=== PATIENT | male | born 1975 | race Caucasian/White ===

== ENCOUNTER 2018-04-21 18:34 | Emergency (ER) | payer OTHER, SELFPAY ==
[2018-04-21 18:35] VITALS: BP 170/93; PULSE 108; RESP 28; TEMP 36.7; O2SAT 96; BMI 50.8
--- NOTE | 2018-04-21 18:51 | ED.VISSUMM ---
- ER Visit Summary Date of Service: 04/21/18 Chief Complaint: Low back pain radiating down his left leg History of Present Illness: The patient is a 42 M past medical history of nnn-qgzycsh-svypdldgh diabetes, hypertension depression and COPD. No prior surgeries. No back surgeries. Patient states the last 2 weeks he has had increasing back pain now rating down his left leg with tingling. No weakness. No incontinence. He is on no blood thinners. Patient and he states that he slept on bed with his left leg hanging over the bed. Since that time for the last 2 weeks has had increasing low back pain. Radiating down his left buttock and left hamstring. He states the pain is very severe. He denies any trauma whatsoever. No falls. No fever. Physical Examination: Middle-aged male. Standing up. Complaining of pain. Vital signs are stable. He is afebrile. HEENT exam unremarkable. Neck nontender no lymphadenopathy. Lungs clear to auscultation bilaterally. Heart regular rhythm rate about 110 no murmur. Chest wall nontender. Abdomen soft, obese but nontender normal bowel sounds no peritoneal signs. Remedies moves all 4. He has severe pain with straight leg raise of the left leg. It goes down his buttock down his leg and he screams in pain. He also has pain on palpation of his lower lumbar spine and his left SI joint. There is no signs of trauma. No ecchymosis or bruising. Dorsi and plantar flexion are intact. He has no cauda equina or saddle anesthesia. He is able to stand on either leg. His right leg is unremarkable and is a negative straight leg raise on the right. Test Results: bgt = 221 Emergency Department Course and Treatment: Patient treated with IV Dilaudid, Toradol and Zofran. Patient was given a second dose of Dilaudid. After his MRI and 2300 patient is doing well. Feels better. His pain is under control. On repeat exam his both his lower extremities are neurovascular intact. No cauda equina. No saddle anesthesia. Normal medial thigh sensation. Normal dorsi and plantar flexion. His worst pain is when he does a straight leg raise on the left at about 45 degrees. But he has good motor strength in both feet. Patient denied his went over his MRI results. He definitely wants to go home and wants to be treated as an outpatient. I offered patient transfer to [place] for evaluation by spine surgeon. I explained to him that if he gets worse pain that he cannot control or gets numbness or weakness in his left lower extremity needs to return immediately and then we would transfer him to 1 of the larger hospitals in [place] for neurosurgery or spine surgery evaluation. He understands this. Treatment Plan: Patient attempted to get up and get out of bed to be discharged and was having too much pain. I discussed with him transfer. I spoke to [facility] transfer line and also [address] Garzon. Patient will be admitted to general medical floor unable to get spine surgery consultation. Disposition: Transferred to [facility] Impression: Acute lumbar low back pain with radiculopathy Acute L5-S1 disc protrusion with displacement of the S1 nerve also left posterior lateral disc protrusion L4 and L5. History of diabetes, hypertension and COPD This note was generated with wiseri dictation software. It may contain incorrect words, spelling, and punctuation that were not noted in review of the chart prior to signing ED Disposition - Plan for ED Patient: Disposition: Home or Assisted Living Instructions: ED DDD Degenerative Disk Disease Prescriptions: Oxycodone HCl/Acetaminophen [Percocet 10-325 mg Tablet] 1 - 2 tab PO Q6H PRN PRN 7 Days #30 tab PRN Reason: Pain Prednisone [Deltasone] 40 mg PO DAILY #10 tab Referrals: Wolf Wang MD [NON-STAFF] - As soon as possible Woo West MD [NON-STAFF] - As soon as possible Additional Instructions: Follow-up with either Dr. West at the [facility] in [facility] or Dr. Orr. At [facility] on Tuesday.
--- NOTE | 2018-04-21 18:54 | ED.DCSUM_ITS ---
- ER Visit Summary Date of Service: 04/21/18 Chief Complaint: Low back pain radiating down his left leg History of Present Illness: The patient is a 42 M past medical history of zgf-sdlexol-vfgdejgqq diabetes, hypertension depression and COPD. No prior surgeries. No back surgeries. Patient states the last 2 weeks he has had increasing back pain now rating down his left leg with tingling. No weakness. No incontinence. He is on no blood thinners. Patient and he states that he slept on bed with his left leg hanging over the bed. Since that time for the last 2 weeks has had increasing low back pain. Radiating down his left buttock and left hamstring. He states the pain is very severe. He denies any trauma whatsoever. No falls. No fever. Physical Examination: Middle-aged male. Standing up. Complaining of pain. Vital signs are stable. He is afebrile. HEENT exam unremarkable. Neck nontender no lymphadenopathy. Lungs clear to auscultation bilaterally. Heart regular rhythm rate about 110 no murmur. Chest wall nontender. Abdomen soft, obese but nontender normal bowel sounds no peritoneal signs. Remedies moves all 4. He has severe pain with straight leg raise of the left leg. It goes down his buttock down his leg and he screams in pain. He also has pain on palpation of his lower lumbar spine and his left SI joint. There is no signs of trauma. No ecchymosis or bruising. Dorsi and plantar flexion are intact. He has no cauda equina or saddle anesthesia. He is able to stand on either leg. His right leg is unremarkable and is a negative straight leg raise on the right. Test Results: bgt = 221 Emergency Department Course and Treatment: Patient treated with IV Dilaudid, Toradol and Zofran. Patient was given a second dose of Dilaudid. After his MRI and 2300 patient is doing well. Feels better. His pain is under control. On repeat exam his both his lower extremities are neurovascular intact. No cauda equina. No saddle anesthesia. Normal medial thigh sensation. Normal dorsi and plantar flexion. His worst pain is when he does a straight leg raise on the left at about 45 degrees. But he has good motor strength in both feet. Patient denied his went over his MRI results. He definitely wants to go home and wants to be treated as an outpatient. I offered patient transfer to [place] for evaluation by spine surgeon. I explained to him that if he gets w orse pain that he cannot control or gets numbness or weakness in his left lower extremity needs to return immediately and then we would transfer him to 1 of the larger hospitals in [place] for neurosurgery or spine surgery evaluation. He understands this. Treatment Plan: Patient attempted to get up and get out of bed to be discharged and was having too much pain. I discussed with him transfer. I spoke to [facility] transfer line and also [address] Garzon. Patient will be admitted to general medical floor unable to get spine surgery consultation. Disposition: Transferred to [facility] Impression: Acute lumbar low back pain with radiculopathy Acute L5-S1 disc protrusion with displacement of the S1 nerve also left posterior lateral disc protrusion L4 and L5. History of diabetes, hypertension and COPD This note was generated with Oesia dictation software. It may contain incorrect words, spelling, and punctuation that were not noted in review of the chart prior to signing ED Disposition - Plan for ED Patient: Disposition: Home or Assisted Living Instructions: ED DDD Degenerative Disk Disease Prescriptions: Oxycodone HCl/Acetaminophen [Percocet 10-325 mg Tablet] 1 - 2 tab PO Q6H PRN PRN 7 Days #30 tab PRN Reason: Pain Prednisone [Deltasone] 40 mg PO DAILY #10 tab Referrals: Wolf Wang MD [NON-STAFF] - As soon as possible Woo West MD [NON-STAFF] - As soon as possible Additional Instructions: Follow-up with either Dr. West at the [facility] in [facility] or Dr. Orr. At [facility] on Tuesday.
[2018-04-21] MEDS: Ondansetron 4 MG/2 ML Vial IV (19:01)
[2018-04-21] MEDS: Ketorolac 30 MG/ML Syringe IV (19:01)
[2018-04-21] MEDS: HYDROmorphone 1 MG/ML Syringe IV ×2 (19:01→21:48)
--- NOTE | 2018-04-21 19:12 | MRI_ITS ---
STUDY: MRI LUMBAR SPINE WITHOUT CONTRAST REASON FOR EXAM: Male, 42 years old. Back pain with left lower leg radiculopathy TECHNIQUE: Standardized fat and water weighted pulse sequences were obtained in the sagittal and axial planes. COMPARISON: None FINDINGS: T12-L1: Normal endplates. Normal disc height, hydration and morphology. Normal bilateral facet joints. Normal central canal and bilateral lateral recesses. Normal bilateral intervertebral neural foramina. Normal lumbar lordosis. There is no substantial scoliosis. There is mild posterior bulging annulus T11-T12. L1-2: There are mild Schmorl's nodes at L1 and L2. There is borderline central canal narrowing. Normal disc height, hydration and morphology. Normal bilateral facet joints. Normal bilateral intervertebral neural foramina. L2-3: There is mild broad-based posterior bulging annulus. There is borderline central canal narrowing. There is ligamentous hypertrophy and mild facet spondylosis. There is mild bilateral foraminal narrowing. There are Schmorl's nodes at L3 and L2 vertebral bodies. L3-4: There is no disc protrusion. There is mild ligamentous hypertrophy and mild facet spondylosis. There is borderline central canal narrowing. There is no foraminal stenosis. L4-5: There are no foraminal stenosis. Mild ligamentous hypertrophy and mild facet spondylosis. There is a left posterior lateral disc protrusion. There is moderate left foraminal stenosis. There is mild central canal narrowing. L5-S1: There is a moderate to large left paracentral disc protrusion. There is compression and posterior displacement of the left S1 nerve root within the central canal. There is borderline left foraminal narrowing. There is no right foraminal stenosis. There is mild ligamentous hypertrophy and mild facet spondylosis. Normal visualized sacral ala. Normal visualized paraspinous soft tissue structures. MRI/Spine Lumbar (Routine) IMPRESSION: Moderate to large left paracentral disc protrusion at L5-S1 with compression and posterior displacement of the left S1 nerve root within the central canal. There is borderline left foraminal stenosis Left posterior lateral disc protrusion at L4-L5 with moderate left foraminal stenosis and mild central canal stenosis Electronically Signed: Rosas Araiza, at 20:50 EST Tel , Service support ,
[2018-04-21 21:39] VITALS: BP 133/89; PULSE 81; RESP 18; O2SAT 94
[2018-04-21 22:11] LABS: Bedside Glucose 221 mg/dL (70-110)
--- NOTE | 2018-04-21 23:10 | ED.DEP ---
ED Disposition - Plan for ED Patient: Disposition: Home or Assisted Living Instructions: ED DDD Degenerative Disk Disease Prescriptions: Oxycodone HCl/Acetaminophen [Percocet 10-325 mg Tablet] 1 - 2 tab PO Q6H PRN PRN 7 Days #30 tab PRN Reason: Pain Prednisone [Deltasone] 40 mg PO DAILY #10 tab Referrals: Woo West MD [NON-STAFF] - As soon as possible Wolf Wang MD [NON-STAFF] - As soon as possible Additional Instructions: Follow-up with either Dr. West at the [facility] in [facility] or Dr. Orr. At [facility] on Tuesday.
--- NOTE | 2018-04-21 23:14 | DCINST.ED_ITS ---
ED Disposition - Plan for ED Patient: Disposition: Home or Assisted Living Instructions: ED DDD Degenerative Disk Disease Prescriptions: Oxycodone HCl/Acetaminophen [Percocet 10-325 mg Tablet] 1 - 2 tab PO Q6H PRN PRN 7 Days #30 tab PRN Reason: Pain Prednisone [Deltasone] 40 mg PO DAILY #10 tab Referrals: Woo West MD [NON-STAFF] - As soon as possible Wolf Wang MD [NON-STAFF] - As soon as possible Additional Instructions: Follow-up with either Dr. West at the [facility] in [facility] or Dr. Orr. At [facility] on Tuesday.
[2018-04-21] MEDS: predniSONE 20 MG Tablet 60 MG PO (23:16)
[2018-04-22] MEDS: HYDROmorphone 1 MG/ML Syringe IV (00:09)
== END 2018-04-22 00:31 | disposition short-term general hospital (02) ==
PROVIDERS: Emergency Provider Emergency Medicine; Family Provider Student in an Organized Health Care Education/Training Program; PCP Student in an Organized Health Care Education/Training Program
DX: M51.17 Intervertebral disc disorders with radiculopathy, lumbosacral region (principal); M51.36 Other intervertebral disc degeneration, lumbar region; E11.9 Type 2 diabetes mellitus without complications; J44.9 Chronic obstructive pulmonary disease, unspecified; I10 Essential (primary) hypertension; F32.9 Major depressive disorder, single episode, unspecified; Z79.84 Long term (current) use of oral hypoglycemic drugs; Z79.899 Other long term (current) drug therapy
CPT/HCPCS: 72148; 82962; 96374; 96375; 96376; 99282; J7030; A4216; J2405

== ENCOUNTER 2018-08-10 13:53 | Emergency (ER) | payer OTHER, SELFPAY ==
[2018-08-10 13:57] VITALS: BP 142/103; PULSE 110; RESP 18; TEMP 35.7; O2SAT 96; BMI 52.2
--- NOTE | 2018-08-10 14:48 | ED.DCSUM_ITS ---
History of Present Illness Chief Complaint: Back Informant: Patient Onset: Month(s) Current Severity: Moderate Narrative: The patient has a long history of left-sided lumbar back pain rating to his left lower leg he has extensive prior evaluation including recent MRI that showed lumbar disc disease at 2 levels that MRI was done here at [facility] end of April please see that report was reviewed, he indicates he was transferred [facility] he had an evaluation by 2 neurosurgeons and was told because of his body size and BMI he was not an operative candidate he was told to follow-up with other physicians indicates 3 he has chronic pain that has been dealing with at home intermittent use of Oxy codon, indicates 3 days ago the pain exacerbated it is exact same pain he had before he has no numbness weakness paresthesias in the perineal area just pain shooting down his left leg that is had before no cauda equina no trauma no abdominal pain, he has not followed up with his other physicians who he believes were at [facility] Past Medical History - Allergies and Home Meds Allergies/Adverse Reactions: Allergies No Known Allergies Allergy (Verified 04/21/18 18:37) Primary Care Physician: Beka Williamson DO [Primary Care Provider] - Past Medical History: - Smoking Status: Former smoker Review of Systems ROS: - See above General: Denies: Chills, Fever, Sweats Eyes: Denies: Visual changes - bilaterally, Diplopia ENT: Denies: Rhinorrhea, Sore throat Cardiovascular: Denies: Chest pain, Palpitations Respiratory: Denies: Dyspnea, Cough, Dyspnea on exertion Gastrointestinal: Denies: Abdominal pain, Nausea, Vomiting, Diarrhea, Melena, Hematochezia Genitourinary: Denies: Dysuria, Hematuria, Frequency Musculoskeletal: Reports: Back pain, Extremity Pain, - - He has left paralumbar back pain that radiates to his left buttock and down his left leg he has near full range of motion to the left lower extremity right lower extremity but complains of pain with any type of range of movement of left lower extremity he is able dorsi and plantarflex bilaterally his pulses are symmetric the skin is normal he prefers to lay completely still Skin: Denies: Rash, Wounds Neurological: Denies: Headache, Weakness, Numbness Physical Exam Vital Signs/Narrative: Vital Signs Temp Pulse Resp BP Pulse Ox 08/10/18 13:57 96.3 F L 110 H 18 142/103 H 96 General: Well nourished, Well developed, No Acute Distress Head: Normocephalic, Atraumatic Eyes: Perrl, EOMI ENT: Moist mucous membranes, No rhinorrhea Neck: Supple, Nontender Cardiovascular: Regular rate, Regular rhythm, No murmurs Respiratory: No distress, CTA bilaterally, Chest nontender Abdomen: Soft, Nontender, Nondistended, Normal bowel sounds Back: Nontender, Normal Inspection Extremities: Nontender, No edema Skin: Normal color, No rash Neurological: Alert, Oriented x3, Cranial nerves II-XII grossly intact, Normal Strength, Normal Sensation, - - See the note in the review of systems related to this part of the exam Psychological: Normal affect, Normal Mood Diagnostic/Tx/Re-eval - Medical Decision Making Now the MRI did show two-level disease L4 L5-l5 S1, see that report he indicates he is actually been having the pain intermittently since all of the above and it recurred 3 days ago for no specific reason there is no signs of cauda equina he simply wants to be treated for the pain and he wants to go home to follow-up with his outpatient providers, he is given morphine 10 mg Toradol Zofran Evaluation he is feeling much better he has full range of motion of the left lower extremity we discussed inpatient versus outpatient management the concept of the disc cauda equina, he does not wish to be admitted he wants to go home, he understands to follow-up with the back surgeon she was referred to have also recommended he follow-up with [facility] orthopedic spine surgery for further management of the above and return for any signs of numbness weakness incontinence or signs of cauda equina he will do so Home stable Final impression Acute recurrent lumbar back pain history of lumbar disc disease ED Disposition - Plan for ED Patient: Diagnosis: Sciatic leg pain Instructions: BACK SPASM, No Trauma Referrals: Beka Williamson DO [Primary Care Provider] - Additional Instructions: Follow-up with your back surgeon as instructed, consider following up with [facility] lumbar back surgery team
[2018-08-10] MEDS: Ketorolac 60 MG/2 ML Vial IM (14:52)
[2018-08-10] MEDS: Ondansetron ODT 4 MG Tablet PO (14:52)
[2018-08-10] MEDS: morphine 10 MG/ML Syringe SC (14:52)
== END 2018-08-10 15:57 | disposition home or self-care (01) ==
LOC: ED 15:52
PROVIDERS: Emergency Provider Emergency Medicine; Family Provider Student in an Organized Health Care Education/Training Program; PCP Student in an Organized Health Care Education/Training Program
DX: M54.42 Lumbago with sciatica, left side (principal); M51.9 Unspecified thoracic, thoracolumbar and lumbosacral intervertebral disc disorder; Z87.891 Personal history of nicotine dependence
CPT/HCPCS: 96372; 99283

== ENCOUNTER 2020-05-31 08:18 | Observation (INO) | payer OTHER, SELFPAY ==
[2020-05-31] VITALS (12 sets, daily range): BP systolic 118–161; BP diastolic 65–97; PULSE 81–102; RESP 16–24; TEMP 36.4–36.6; O2SAT 93–96; BMI 50.8; BMI 51.4; BMI 51.3
--- NOTE | 2020-05-31 08:28 | CT_ITS ---
STUDY: CT BRAIN WITHOUT CONTRAST REASON FOR EXAM: Male, 44 years old. Headache after trauma RADIATION DOSAGE (If Supplied By Facility): CTDIvol = ( 44.99 ) mGy, DLP = ( 866.41 ) mGycm TECHNIQUE: Transaxial CT imaging of the brain was performed without administration of intravenous contrast material. Individualized dose optimization techniques were used for this CT. COMPARISON: No relevant priors. FINDINGS: Normal soft tissue structures. Normal calvarium. Normal size ventricles and extra-axial spaces for the patient''s age. Normal white matter tracts of the cerebral hemispheres. Normal basal ganglia and thalami. Normal brainstem. Normal cerebellum. There is no intracranial hemorrhage. There are no findings of an acute ischemic infarction. Normal visualized paranasal sinuses. CT/Brain/Head without Contrast IMPRESSION: No acute intracranial abnormalities Electronically Signed: Ángel Garcia MD at 9:19 EDT , Service support ,
--- NOTE | 2020-05-31 08:28 | ED.DCSUM_ITS ---
History of Present Illness Chief Complaint: Chest Pain Informant: Patient Narrative: 44-year-old male presenting with left shoulder pain. He states that it starts in the left upper chest and radiates to his left side of his neck and left clavicle as well as left shoulder. This is been ongoing for about 4 days. 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 Patient states he soaked through his clothes. This is the only time he has had this diaphoresis and near syncopal episode since his pain started. He states that his chest pain appears to be improving at this time. He does feel like he is fatigued and weak. He denies any cardiac history but states that he was unable to do a stress test because he was too obese. He could not perform a chemical stress test due to anxiety. He states this was a couple years ago. Patient's risk factor diabetes, hypothyroidism, hypertension, obesity. Patient does not have DVT/PE history. Past Medical History - Allergies and Home Meds Allergies/Adverse Reactions: Allergies No Known Allergies Allergy (Verified 05/31/20 08:22) Primary Care Physician: Beka Williamson DO [Primary Care Provider] - Past Medical History: - - Diabetes, hypertension, hypothyroidism Smoking Status: Never smoker Review of Systems General: Denies: Chills, Fever, Sweats Eyes: Denies: Visual changes - bilaterally, Diplopia ENT: Denies: Rhinorrhea, Sore throat Cardiovascular: Reports: Chest pain Respiratory: Denies: Dyspnea, Cough, Dyspnea on exertion Gastrointestinal: Reports: Nausea. Denies: Abdominal pain Genitourinary: Denies: Dysuria, Hematuria, Frequency Musculoskeletal: Denies: Back pain, Extremity Pain Skin: Denies: Rash, Abscess Neurological: Reports: Headache Psych: Denies: Depression, Anxiety Endocrine: Reports: Polyuria, Polydipsia Hematologic: Denies: Easy bruising, Easy bleeding Physical Exam Vital Signs/Narrative: Vital Signs Temp Pulse Resp BP Pulse Ox 05/31/20 08:22 97.5 F L 102 H 20 H 161/92 H 96 Inital Vital Signs reviewed: Yes General: Obese, No Acute Distress Head: Normocephalic, Atraumatic Eyes: Perrl, EOMI ENT: Moist mucous membranes, No rhinorrhea Cardiovascular: Regular rate, Regular rhythm Respiratory: No distress, CTA bilaterally Abdomen: Soft, Nontender, Nondistended Extremities: Nontender, No edema Skin: Normal color, No rash. Negative for: Cyanosis, Diaphoresis, Jaundice Neurological: Alert, Oriented x3, Cranial nerves II-XII grossly intact Psychological: Normal affect, Normal Mood Diagnostic/Tx/Re-eval - Medical Decision Making 44-year-old male presenting with chest pain and near syncopal episode. He states his pain has been present for about 3 or 4 days. This worsened overnight he became diaphoretic prior to becoming near syncopal. EKG performed on arrival shows sinus tachycardia at 102 bpm without signs of ischemic changes as interpreted by myself. CBC is unremarkable. Renal function is a creatinine of 1.75 and is previously at 1.07 which is new however this is compared to lab work in 2017. Troponin is negative. D-dimer is negative. Glucose is 373 on lab work however he has no anion gap. Ketones are negative. Chest x-ray is interpreted by myself shows no acute cardiopulmonary process. Patient's heart score is a 5. Is recommended that he stays in the hospital for cardiac gato luation. Patient is willing to do so at this time. I did speak with the hospitalist who accepted patient for observation. Impression: 1. Hyperglycemia 2. Acute kidney injury 3. Chest pain ED Disposition - Plan for ED Patient: Disposition: Acute Care Hospital [facility] Referrals: Beka Williamson DO [Primary Care Provider] -
--- NOTE | 2020-05-31 08:28 | EKG12_ITS ---
Test Reason : CP Blood Pressure : / mmHG Vent. Rate : 102 BPM Atrial Rate : 102 BPM P-R Int : 152 ms QRS Dur : 096 ms QT Int : 366 ms P-R-T Axes : 046 059 043 degrees QTc Int : 477 ms Sinus tachycardia Low voltage QRS Borderline ECG Confirmed by MARIAH BLOCK, VICKY ([id number]), editor department TANI CUBA ([id number]) on 06/04/2020 10:50:31 AM Referred By: ZANDRA Confirmed By:VICKY LEMUS MD
--- NOTE | 2020-05-31 08:28 | RAD_ITS ---
STUDY: X-RAY CHEST REASON FOR EXAM: Male, 44 years old. Chest pain TECHNIQUE: Single AP portable view of the chest. COMPARISON: None. FINDINGS: EKG leads overlie the chest The lungs are clear and expanded. There is no demonstrated pleural abnormality. Normal size heart. Normal mediastinum and deyvi. Normal visualized pulmonary arteries. Normal visualized aortic arch and descending thoracic aorta. Normal visualized thoracic spine. Normal visualized ribs, clavicles, and shoulders. There is no demonstrated abnormality of the visualized soft tissue structures of the upper abdomen. RAD/Chest 1 View (Portable) IMPRESSION: Normal x-ray examination of the chest. Electronically Signed: Ángel Garcia MD at 9:19 EDT , Service support ,
[2020-05-31 08:36] LABS: Bedside Glucose 447 mg/dL (70-110)
[2020-05-31] MEDS: 0.9% Normal Saline 1,000 ML 999 ML IV (08:40)
[2020-05-31] MEDS: Aspirin 81 MG TAB.CHEW 324 MG PO (08:40)
[2020-05-31 08:49] LABS: Absolute Lymphocyte Count 2.05 X10^3/uL (0.83-4.51); Absolute Neutrophil Count 4.4 X10^3/uL (2.0-7.7); Basophil# 0.07 X10^3/uL; Basophil% 0.9 % (0-1); Eosinophil# 0.31 X10^3/uL; Eosinophils% 4.2 % (0-5); Hematocrit 43.4 % (40-54); Hemoglobin 14.5 g/dL (13.0-16.5); Lymphocyte # 2.05 X10^3/ul (4.0); Lymphocyte % 27.7 % (19-41); Mean Corp Hgb Conc 33.4 g/dL (32-36); Mean Corpuscular Hgb 28.9 pg (27.0-32.0); Mean Corpuscular Volume 86.6 fL (80-94); Mean Platelet Vol. 9.6 fl (6.2-12.0); Monocyte# 0.51 X10^3/uL; Monocyte% 6.9 % (0-10); NRBC Flagged by Analyzer 0 % (0-5); Neutrophil # 4.41 X10^3/uL (2.7-7.7); Neutrophil % 59.5 % (47-70); Platelet Count 237 K/mm3 (150-450); RBC Distribution Width SD 40.6 fl (35.1-43.9); Red Blood Count 5.01 M/mm3 (4.6-6.2); White Blood Count 7.4 K/mm3 (4.4-11.0)
[2020-05-31 09:38] LABS: D-Dimer Quantitative (DVT/PE) 0.28 FEU/ug/m (0.27-0.49)
[2020-05-31 09:41] LABS: Anion Gap 6 (5-15); BUN 33 mg/dL (7-18); BUN/Creat Ratio 18.9 RATIO (10-20); Calcium,Total 8.9 mg/dL (8.5-10.1); Chloride 101 mmol/L (98-107); Creatinine, Serum 1.75 mg/dL (0.70-1.30); EST Glomerular Filtration Rate 45 mL/min (>60); Est Glom Filt Rate - Afr Amer 54 mL/min (>60); Estimated Creatinine Clearance 58.51 ml/min; Glucose 373 mg/dL (74-106); Sodium Level 133 mmol/L (136-145)
[2020-05-31 10:16] LABS: Bacteria 0 SEEN /hpf (None Seen); Mucous, Urine 0 SEEN /hpf (<or=2+); Red Blood Cells-Urine 0 SEEN /hpf (0-5); Squamous Epithelial Cells - UA 0 SEEN /hpf (0-5); White Blood Cells 0 SEEN /hpf (0-5)
[2020-05-31 10:31] LABS: Color, Urine Yellow (Yellow); Glucose, Dipstick 1000 mg/dl (Normal); Ketone-Dipstick Negative (Negative); Leukocyte Esterase-Dipstick Negative /ul (Negative); Nitrite-Dipstick Negative (Negative); Occult Blood-Urine Negative /ul (Negative); Protein-Dipstick 30 mg/dl (Negative); Specific Gravity, Urine 1.015 (1.002-1.030); Urine Bilirubin Dipstick Negative (Negative); Urine Clarity Clear (Clear); Urine Urobilinogen Normal (Normal)
--- NOTE | 2020-05-31 12:20 | HP.PCM_ITS ---
Problem List (1) HTN (hypertension) Status: Chronic (2) Hypothyroidism Status: Chronic (3) Type 2 diabetes mellitus Status: Chronic (4) ERI on CPAP Status: Chronic (5) Obesity Status: Chronic (6) COPD (chronic obstructive pulmonary disease) Status: Chronic History of Present Illness Date of Admission: 05/31/20 Chief Complaint: Chest pain. The patient is a 44 year old M who presents to the emergency room due to chest pain. Patient states over the past 4 to 5 days he has had left arm pain and left clavicle area pain which has been burning in nature and is continuous. Denies worsening symptoms with exertion or any aggravating or alleviating facto rs. He states he is chronically short of breath due to being out of shape. Last night at work around 3 AM, patient states he developed sudden severe diaphoresis and weakness along with shortness of breath. He states he felt like he was going to pass out at this time. He states he was dripping sweat. He has not experienced this in the past. He denies known CAD. He states his uncles on his dad's side all have a cardiac history. He has a past medical history of type 2 diabetes mellitus, hypertension, hypothyroidism, anxiety, depression, ERI on CPAP, chronic back pain, COPD, obesity, former tobacco use, former alcohol use. Past Medical History Past Medical History (Chronic Problems): Chronic Problems HTN (hypertension) (Chronic) Hypothyroidism (Chronic) Type 2 diabetes mellitus (Chronic) ERI on CPAP (Chronic) Obesity (Chronic) COPD (chronic obstructive pulmonary disease) (Chronic) Allergies No Known Allergies Allergy (Verified 05/31/20 08:22) Home Medications: Ambulatory Orders Medication Instructions Recorded Albuterol Inhaler [Ventolin Hfa 1 - 2 puff INHALATION Q4H PRN PRN 04/21/18 (SP)] Fluticasone/Salmeterol [Advair 2 puff INHALATION BID 04/21/18 250-50 Diskus] Levothyroxine Sodium 100 mcg PO DAILY 04/21/18 Lisinopril/Hydrochlorothiazide 1 each PO DAILY 04/21/18 [Lisinopril-Hctz 20-12.5 mg Tab] Metformin HCl 1,000 mg PO BID 04/21/18 Sertraline HCl 1 tab PO DAILY 04/21/18 buPROPion XL [Wellbutrin Xl] 300 mg PO DAILY 04/21/18 Diclofenac [Voltaren] 75 mg PO TID 08/10/18 Gabapentin [Neurontin] 600 mg PO TID 08/10/18 Insulin Glargine,Hum.rec.anlog 34 unit SQ DAILY 08/10/18 [Lantus] Tizanidine HCl 4 mg PO Q6H 05/31/20 Surgical History: no surgical history Psychiatric History: Anxiety, Depression Lives: Spouse/ Significant Other, With Family Smoking Status: Former smoker Alcohol: Sober Drugs: None - *Family History Maternal History Items: - - Osteoporosis, history of bone fractures. Denies maternal cardiac history. Paternal History Items: - - Cancer, esophageal. Denies paternal cardiac history. Review of Systems Constitutional: Denies: Chills, Fever, Weight Change HEENT: Denies: Head Aches, Sinus Congestion, Sinus Drainage Cardiovascular: Reports: Chest Pain, Light Headedness, - - Diaphoresis. Denies: Palpitations Respiratory: Reports: Shortness of breath upon exertion. Denies: Cough, Sputum production, Wheezing Gastrointestinal: Denies: Abdominal Pain, Nausea, Vomiting Genitourinary: Denies: Dysuria Musculoskeletal: Reports: Back Pain - Chronic. Denies: Joint Pain, Joint Tenderness Skin: Denies: Rash, Wounds Neurological: Denies: Numbness, Tingling, Focal weakness Psychiatric: Reports: Anxiety, Depression Hematologic/ Lymphatic: Denies: Easy Bruising, Easy Bleeding VTE Information - Inpt Only VTE Present on Admission: No VTE Mechan Device Prophylaxis: SCD's VTE Pharm Prophylaxis ordered?: No Reason prophylaxis not ordered:: Treatment Not Indicated - Physical Exam Vitals/I&O's: Vital Signs Temp Pulse Resp BP Pulse Ox 97.9 F 94 17 135/90 H 94 05/31/20 11:38 05/31/20 11:38 05/31/20 11:38 05/31/20 11:38 05/31/20 11:38 Oxygen Delivery Method Room Air Weight: 375 lb Body Mass Index (BMI) 50.8 Finger Stick Blood Glucose 447 Intake and Output for Last 24 Hours 05/29/20 05/30/20 05/31/20 23:59 23:59 23:59 Intake Total 1000 / 1000 Balance 1000 / 1000 General: Alert, Oriented x3, Cooperative HEENT: Atraumatic, PERRLA, EOMI, Normocephalic Neck: Supple, No JVD, Negative Carotid Bruits Lungs: Clear to auscultation, Normal air movement Cardiovascular: Regular rate, No murmurs Abdomen: Bowel Sounds Present, Soft, Non Tender, Non-Distended, Obese Extremities: No clubbing, No cyanosis, No edema, Capillary Refill Less than 3 Seconds Skin: No rashes, No breakdown Musculoskeletal: No Tenderness to Palpation of Joints or Extremities Neurological: Cranial nerves II-XII grossly intact, Neuro grossly intact Psych/Mental Status: Normal Affect, Appropriate Laboratory Results 05/31/20 08:30: POC Glucose 447 H 05/31/20 08:38: WBC 7.4, RBC 5.01, Hgb 14.5, Hct 43.4, MCV 86.6, MCH 28.9, MCHC 33.4, RDW Std Deviation 40.6, RDW Coeff of [place] 13.0, Plt Count 237, MPV 9.6, Immature Gran % (Auto) 0.800, Neut % (Auto) 59.5, Lymph % (Auto) 27.7, [place] % (Auto) 6.9, Eos % (Auto) 4.2, Baso % (Auto) 0.9, Absolute Neuts (auto) 4.4, Absolute Lymphs (auto) 2.05, Nucleated RBC % 0 05/31/20 08:38: D-Dimer Quant (PE/DVT) Cancelled 05/31/20 08:38: Sodium Cancelled, Potassium Cancelled, Chloride Cancelled, Carbon Dioxide Cancelled, Anion Gap Cancelled, BUN Cancelled, Creatinine Cancelled, Estim Creat Clear Calc Cancelled, Est GFR (MDRD) Af Amer Cancelled, Est GFR (MDRD) Non-Af Cancelled, BUN/Creatinine Ratio Cancelled, Glucose Cancelled, Calcium Cancelled, Magnesium Cancelled, Troponin I Cancelled, TSH Cancelled 05/31/20 08:38: Acetone Level Cancelled 05/31/20 09:16: D-Dimer Quant (PE/DVT) 0.28 05/31/20 09:16: Sodium 133 L, Potassium 5.0, Chloride 101, Carbon Dioxide 26.0, Anion Gap 6, BUN 33 H, Creatinine 1.75 H, Estim Creat Clear Calc 58.51, Est GFR (MDRD) Af Amer 54 L, Est GFR (MDRD) Non-Af 45 L, BUN/Creatinine Ratio 18.9, Glucose 373 H, Calcium 8.9, Magnesium 2.0, Troponin I < 0.015 05/31/20 09:16: Acetone Level NEGATIVE 05/31/20 10:12: Urine Color Yellow, Urine Clarity Clear, Urine pH 5.0, Ur Specific [place] 1.015, Urine Protein 30 H, Urine Glucose (UA) 1000 H, Urine Ketones Negative, Urine Occult Blood Negative, Urine Nitrite Negative, Urine Bilirubin Negative, Urine Urobilinogen Normal, Ur Leukocyte Esterase Negative, Urine RBC 0 SEEN, Urine WBC 0 SEEN, Ur Squamous Epith Cells 0 SEEN, Urine Bacteria 0 SEEN, Urine Mucus 0 SEEN Assessment/Plan 1. Chest pain- troponin negative. EKG without acute changes. Plan for stress test on Tuesday. Aspirin 81 mg daily. Lipid profile in a.m. 2. Acute kidney injury-IV fluids, trend BMP. 3. Type 2 diabetes mellitus-poorly controlled. Glucose 373 on admission. Check hemoglobin A1c. Accu-Cheks with sliding scale insulin. Continue home Lantus regimen. 4. Hypertension-appears stable, continue lisinopril/HCTZ regimen. 5. Hypothyroidism-continue Synthroid regimen. 6. Anxiety/depression-on bupropion, sertraline. 7. ERI-on CPAP. 8. Chronic back pain-on Voltaren, gabapentin, tizanidine. 9. Chronic COPD-as needed albuterol aerosol. 10. Obesity-encouraged diet lifestyle modifications. 11. Former tobacco use- Encouraged continued cessation. 12. 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 DVT prophylaxis-SCDs This patient was seen by ANI Goss under the supervision of Dr. Farrar.
--- NOTE | 2020-05-31 12:32 | EKG12_ITS ---
Test Reason : AM EKG Blood Pressure : / mmHG Vent. Rate : 088 BPM Atrial Rate : 088 BPM P-R Int : 152 ms QRS Dur : 104 ms QT Int : 394 ms P-R-T Axes : 055 078 065 degrees QTc Int : 476 ms Normal sinus rhythm Normal ECG When compared with ECG of 31-MAY-2020 13:05, MANUAL COMPARISON REQUIRED, DATA IS UNCONFIRMED Confirmed by MARIAH BLOCK, VICKY ([id number]), book editor TANI CUBA ([id number]) on 06/04/2020 1:13:25 PM Referred By: DR TORRES Confirmed By:VICKY LEMUS MD
[2020-05-31] MEDS: metFORMIN HCl 500 MG Tablet 1000 MG PO (13:19)
[2020-05-31] MEDS: Lisinopril 20 MG Tablet PO (13:19)
[2020-05-31] MEDS: Acetaminophen 325 MG Tablet 650 MG PO (13:19)
[2020-05-31] MEDS: Gabapentin 300 MG Capsule 600 MG PO ×2 (13:20→17:04)
[2020-05-31] MEDS: 0.9% Normal Saline 1,000 ML 150 ML IV ×2 (13:20→18:42)
[2020-05-31] MEDS: 0.9% Saline Lock 10 ML Syringe IV (13:20)
[2020-05-31 13:58] LABS: Hemoglobin A1c 11.4 % (3.8-5.6)
[2020-05-31] MEDS: tiZANidine HCl 2 MG Tablet 4 MG PO (15:01)
[2020-05-31] MEDS: busPIRone 15 MG TABLET 7.5 MG PO (15:01)
[2020-05-31] MEDS: Sertraline 50 MG Tablet PO (15:01)
[2020-05-31] MEDS: buPROPion (XL) 300 MG TABLET.XL PO (15:01)
[2020-05-31] MEDS: Insulin Lispro 100 UNIT/ML INSULN.PEN SC ×2 (17:02→22:31)
[2020-05-31 17:05] LABS: Bedside Glucose 296 mg/dL (70-110)
[2020-05-31] MEDS: Budesonide Respules 0.5 MG/2 ML AMPUL.NEB. INHALATION (19:05)
[2020-05-31] MEDS: Albuterol 2.5 MG/3 ML VIAL.NEB. INHALATION (19:05)
[2020-05-31 23:56] LABS: Bedside Glucose 204 mg/dL (70-110)
[2020-06-01] VITALS (12 sets, daily range): BP systolic 117–120; BP diastolic 69–72; PULSE 88–108; RESP 18–21; TEMP 36.4–36.6; O2SAT 94–97
[2020-06-01] MEDS: 0.9% Normal Saline 1,000 ML 150 ML IV ×4 (01:30→20:47)
[2020-06-01] MEDS: Levothyroxine 100 MCG Tablet PO (06:42)
[2020-06-01] MEDS: Insulin Lispro 100 UNIT/ML INSULN.PEN SC ×4 (06:44→20:47)
[2020-06-01 06:55] LABS: Bedside Glucose 277 mg/dL (70-110)
[2020-06-01 07:07] LABS: Anion Gap 4 (5-15); BUN 22 mg/dL (7-18); BUN/Creat Ratio 17.5 RATIO (10-20); Calcium,Total 8.6 mg/dL (8.5-10.1); Chloride 102 mmol/L (98-107); Cholesterol 226 mg/dL (200); Creatinine, Serum 1.26 mg/dL (0.70-1.30); EST Glomerular Filtration Rate 66 mL/min (>60); Est Glom Filt Rate - Afr Amer 79 mL/min (>60); Estimated Creatinine Clearance 78.85 ml/min; Glucose 276 mg/dL (74-106); High Density Lipoprotein 38 mg/dL; Potassium 4.8 mmol/L (3.5-5.1); Sodium Level 133 mmol/L (136-145); Triglycerides 462 mg/dL
[2020-06-01] MEDS: Acetaminophen 325 MG Tablet 650 MG PO ×2 (09:11→20:46)
[2020-06-01] MEDS: busPIRone 15 MG TABLET 7.5 MG PO (09:11)
[2020-06-01] MEDS: tiZANidine HCl 2 MG Tablet 4 MG PO ×2 (09:11→20:46)
[2020-06-01] MEDS: Gabapentin 300 MG Capsule 600 MG PO ×3 (09:12→16:45)
[2020-06-01] MEDS: buPROPion (XL) 300 MG TABLET.XL PO (09:12)
[2020-06-01] MEDS: Sertraline 50 MG Tablet PO (09:12)
[2020-06-01] MEDS: Lisinopril 20 MG Tablet PO (09:12)
--- NOTE | 2020-06-01 10:38 | PN_ITS ---
Subjective: Patient seen and examined. No acute events overnight. Denies further chest pain or episodes of diaphoresis, shortness of breath. - Physical Exam Vitals/I&O's: Vital Signs Temp Pulse Resp BP Pulse Ox 97.6 F L 94 18 118/69 96 06/01/20 09:02 06/01/20 09:02 06/01/20 09:02 06/01/20 09:02 06/01/20 09:02 Oxygen Delivery Method Room Air Weight: 368 lb 6.279 oz Body Mass Index (BMI) 51.3 Finger Stick Blood Glucose 447 Intake and Output for Last 24 Hours 05/30/20 05/31/20 06/01/20 23:59 23:59 23:59 Intake Total 2605 / 2605 2200 / 2200 Balance 2605 / 2605 2200 / 2200 General: Alert, Oriented x3, Cooperative HEENT: Atraumatic, PERRLA, EOMI, Normocephalic Neck: Supple, No JVD, Negative Carotid Bruits Lungs: Clear to auscultation, Normal air movement Cardiovascular: Regular rate, No murmurs Abdomen: Bowel Sounds Present, Soft, Non Tender, Non-Distended, Obese Extremities: No clubbing, No cyanosis, No edema, Capillary Refill Less than 3 Seconds Skin: No rashes, No breakdown Musculoskeletal: No Tenderness to Palpation of Joints or Extremities Neurological: Cranial nerves II-XII grossly intact, Neuro grossly intact Psych/Mental Status: Normal Affect, Appropriate Laboratory Results 05/31/20 10:12: Urine RBC 0 SEEN, Urine WBC 0 SEEN, Ur Squamous Epith Cells 0 SEEN, Urine Bacteria 0 SEEN, Urine Mucus 0 SEEN 05/31/20 12:40: Troponin I < 0.015 05/31/20 12:40: Hemoglobin A1c 11.4 H 05/31/20 15:44: Troponin I < 0.015 05/31/20 16:58: POC Glucose 296 H 05/31/20 22:30: POC Glucose 204 H 06/01/20 06:23: Sodium 133 L, Potassium 4.8, Chloride 102, Carbon Dioxide 27.0, Anion Gap 4 L, BUN 22 H, Creatinine 1.26, Estim Creat Clear Calc 78.85, Est GFR (MDRD) Af Amer 79, Est GFR (MDRD) Non-Af 66, BUN/Creatinine Ratio 17.5, Glucose 276 H, Calcium 8.6, Triglycerides 462 H, Cholesterol 226 H, LDL Cholesterol TNP, VLDL Cholesterol TNP, HDL Cholesterol 38 L 06/01/20 06:44: POC Glucose 277 H Current Medications Acetaminophen (Acetaminophen 325 Mg Tablet) 650 mg PO Q6H PRN PRN PRN Reason: Pain Score 1-10/Temp > 100.7 F Last Admin: 06/01/20 09:11 Dose: 650 mg Documented by: Albuterol Sulfate (Albuterol 2.5 Mg/3 Ml Vial.Neb.) 2.5 mg INHALATION Q6HWA.RT [facility] Last Admin: 05/31/20 19:05 Dose: 2.5 mg Documented by: Budesonide (Budesonide Respules 0.5 Mg/2 Ml Ampul.Neb.) 0.5 mg INHALATION Q12H .RT [facility] Last Admin: 05/31/20 19:05 Dose: 0.5 mg Documented by: Bupropion HCl (Bupropion (Xl) 300 Mg Tablet.Xl) 300 mg PO DAILY [facility] Last Admin: 06/01/20 09:12 Dose: 300 mg Documented by: Buspirone HCl (Buspirone 15 Mg Tablet) 7.5 mg PO TID PRN PRN Reason: ANXIETY Last Admin: 06/01/20 09:11 Dose: 7.5 mg Documented by: Gabapentin (Gabapentin 300 Mg Capsule) 600 mg PO TIDCM [facility] Last Admin: 06/01/20 09:12 Dose: 600 mg Documented by: Sodium Chloride () 1,000 mls @ 150 mls/hr IV .Q6H40M [facility] Last Admin: 06/01/20 08:38 Dose: 150 mls/hr Documented by: Sodium Chloride () 500 mls @ 15 mls/hr IV PRN PRN PRN Reason: Blood Transfusion Sodium Chloride () 250 mls @ 15 mls/hr IV .[id number] PRN PRN Reason: Saline Flush Sodium Chloride () 250 mls @ 15 mls/hr IV .[id number] PRN PRN Reason: Additional IVPB Infusion Insulin Glargine (Insulin Glargine 100 Units/Ml Pen) 42 units SC DAILY [facility] Last Admin: 06/01/20 09:10 Dose: 42 unit Documented by: Insulin Human Lispro (Insulin Lispro 100 Unit/Ml Insuln.Pen) 0 unit SC ACHS [facility]; Protocol Last Admin: 06/01/20 06:44 Dose: 4 unit Documented by: Levothyroxine Sodium (Levothyroxine 100 Mcg Tablet) 100 mcg PO DAILY@0600 [facility] Last Admin: 06/01/20 06:42 Dose: 100 mcg Documented by: Lisinopril (Lisinopril 20 Mg Tablet) 20 mg PO DAILY [facility] Last Admin: 06/01/20 09:12 Dose: 20 mg Documented by: Metformin HCl (Metformin Hcl 500 Mg Tablet) 1,000 mg PO BIDCM [facility] Last Admin: 06/01/20 09:03 Dose: Not Given Documented by: Ondansetron HCl (Ondansetron 4 Mg/2 Ml Vial) 4 mg IV Q8H PRN PRN PRN Reason: NAUSEA/VOMITING Sertraline HCl (Sertraline 50 Mg Tablet) 50 mg PO DAILY [facility] Last Admin: 06/01/20 09:12 Dose: 50 mg Documented by: Sodium Chloride (0.9% Saline Lock 10 Ml Syringe) 10 - 40 ml IV UD PRN PRN Reason: SALINE FLUSH Last Admin: 05/31/20 13:20 Dose: 10 ml Documented by: Tizanidine HCl (Tizanidine Hcl 2 Mg Tablet) 4 mg PO Q8H PRN PRN PRN Reason: MUSCLE SPASM Last Admin: 06/01/20 09:11 Dose: 4 mg Documented by: Medical Necessity - Tobacco Use Smoking Status: Former smoker Assessment/Plan 1. Chest pain- troponin negative. EKG without acute changes. Plan for stress test on Tuesday. Aspirin 81 mg daily. Initiated on statin. 2. Acute kidney injury-improved with IV fluids, trend BMP. 3. Type 2 diabetes mellitus-poorly controlled. Hemoglobin A1c 11.4%. Accu- Cheks with sliding scale insulin. Home Lantus regimen increased. 4. Hypertension-appears stable, continue lisinopril/HCTZ regimen. 5. Hypothyroidism-continue Synthroid regimen. 6. Anxiety/depression-on bupropion, sertraline. 7. ERI-on CPAP. 8. Chronic back pain-on Voltaren, gabapentin, tizanidine. 9. Chronic COPD-as needed albuterol aerosol. 10. Obesity-encouraged diet lifestyle modifications. 11. Former tobacco use- Encouraged continued cessation. 12. 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 13. Hyperlipidemia-initiated on statin. DVT prophylaxis-SCDs This patient was seen by ANI Goss under the supervision of Dr. Farrar.
[2020-06-01] MEDS: Albuterol 2.5 MG/3 ML VIAL.NEB. INHALATION ×2 (11:30→20:03)
[2020-06-01] MEDS: Budesonide Respules 0.5 MG/2 ML AMPUL.NEB. INHALATION ×2 (11:30→20:03)
[2020-06-01 11:40] LABS: Bedside Glucose 295 mg/dL (70-110)
[2020-06-01 16:51] LABS: Bedside Glucose 289 mg/dL (70-110)
[2020-06-01] MEDS: Atorvastatin Calcium 20 MG Tablet PO (20:47)
[2020-06-01 21:36] LABS: Bedside Glucose 268 mg/dL (70-110)
[2020-06-02 03:00] VITALS: BP 118/66; PULSE 85; RESP 17; TEMP 36.6; O2SAT 97
[2020-06-02 03:29] VITALS: PULSE 82
[2020-06-02] MEDS: 0.9% Normal Saline 1,000 ML 150 ML IV ×2 (03:40→11:30)
--- NOTE | 2020-06-02 05:17 | EKG12_ITS ---
Test Reason : CP Blood Pressure : / mmHG Vent. Rate : 092 BPM Atrial Rate : 092 BPM P-R Int : 158 ms QRS Dur : 100 ms QT Int : 392 ms P-R-T Axes : 052 072 067 degrees QTc Int : 484 ms Normal sinus rhythm Prolonged QT Abnormal ECG When compared with ECG of 31-MAY-2020 08:31, MANUAL COMPARISON REQUIRED, DATA IS UNCONFIRMED Confirmed by MARIAH BLOCK, VICKY ([id number]), editor at large TANI CUBA ([id number]) on 06/04/2020 1:24:35 PM Referred By: TRINO Confirmed By:VICKY LEMUS MD
[2020-06-02] MEDS: Levothyroxine 100 MCG Tablet PO (05:54)
[2020-06-02] MEDS: Lisinopril 20 MG Tablet PO (05:54)
[2020-06-02 06:42] LABS: Hemoglobin 14.3 g/dL (13.0-16.5); Mean Corp Hgb Conc 32.5 g/dL (32-36); Mean Corpuscular Hgb 28.7 pg (27.0-32.0); Mean Corpuscular Volume 88.2 fL (80-94); Mean Platelet Vol. 9.2 fl (6.2-12.0); Platelet Count 204 K/mm3 (150-450); RBC Distribution Width CV 13.2 % (11.6-14.6); RBC Distribution Width SD 42.5 fl (35.1-43.9); Red Blood Count 4.99 M/mm3 (4.6-6.2); White Blood Count 5.9 K/mm3 (4.4-11.0)
[2020-06-02 07:00] VITALS: PULSE 82
[2020-06-02 07:05] LABS: Anion Gap 5 (5-15); BUN 17 mg/dL (7-18); BUN/Creat Ratio 15.2 RATIO (10-20); Calcium,Total 8.5 mg/dL (8.5-10.1); Chloride 105 mmol/L (98-107); Creatinine, Serum 1.12 mg/dL (0.70-1.30); EST Glomerular Filtration Rate 75 mL/min (>60); Est Glom Filt Rate - Afr Amer 91 mL/min (>60); Estimated Creatinine Clearance 88.71 ml/min; Glucose 246 mg/dL (74-106); Potassium 4.5 mmol/L (3.5-5.1); Sodium Level 135 mmol/L (136-145)
[2020-06-02 07:09] VITALS: PULSE 85; RESP 20; O2SAT 96
[2020-06-02] MEDS: Budesonide Respules 0.5 MG/2 ML AMPUL.NEB. INHALATION (07:09)
[2020-06-02] MEDS: Albuterol 2.5 MG/3 ML VIAL.NEB. INHALATION (07:09)
[2020-06-02 07:40] LABS: Bedside Glucose 237 mg/dL (70-110)
[2020-06-02 08:10] VITALS: BP 122/77; PULSE 89; RESP 18; TEMP 36.8; O2SAT 94
[2020-06-02 11:25] VITALS: BP 131/73; PULSE 80; RESP 18; TEMP 36.7; O2SAT 96
[2020-06-02] MEDS: Gabapentin 300 MG Capsule 600 MG PO (11:29)
[2020-06-02] MEDS: buPROPion (XL) 300 MG TABLET.XL PO (11:29)
[2020-06-02] MEDS: Insulin Lispro 100 UNIT/ML INSULN.PEN SC (11:30)
[2020-06-02] MEDS: Sertraline 50 MG Tablet PO (11:30)
[2020-06-02 11:40] LABS: Bedside Glucose 243 mg/dL (70-110)
--- NOTE | 2020-06-02 11:51 | PCM.DC ---
- Discharge Diagnoses Current Active Problems: Current Active and Chronic Problems HTN (hypertension) (Chronic) Hypothyroidism (Chronic) Type 2 diabetes mellitus (Chronic) ERI on CPAP (Chronic) Obesity (Chronic) COPD (chronic obstructive pulmonary disease) (Chronic) You will use the following diet at home:: Calorie/Carbohydrate Controlled (specify 1200, 1400, etc) Discharge Activity: Return to Normal Activity Call your doctor if you observe: Shortness of breath, Dizziness, Fainting spells, Chest pain Allergies/Adverse Reactions: Allergies No Known Allergies Allergy (Verified 05/31/20 08:22) Medications to take at Discharge Albuterol Inhaler [Ventolin Hfa] 1 - 2 puff INHALATION Q4H PRN PRN 04/21/18 Fluticasone/Salmeterol [Advair 250-50 Diskus] 2 puff INHALATION BID 04/21/18 Levothyroxine Sodium 100 mcg PO DAILY 04/21/18 Lisinopril/Hydrochlorothiazide [Lisinopril-Hctz 20-12.5 mg Tab] 1 each PO DAILY 04/21/18 Metformin HCl 1,000 mg PO BID 04/21/18 Sertraline HCl 100 mg PO DAILY 04/21/18 buPROPion XL [Wellbutrin Xl] 300 mg PO DAILY 04/21/18 Diclofenac [Voltaren] 75 mg PO TID 08/10/18 Gabapentin [Neurontin] 600 mg PO TID 08/10/18 Meclizine HCl 12.5 mg PO BID PRN 05/31/20 Multivitamin 1 tablet PO DAILY 05/31/20 Tizanidine HCl 4 mg PO Q6H 05/31/20 busPIRone [Buspar] 7.5 mg PO TID PRN 05/31/20 proMETHazine tablet [Phenergan tablet] 12.5 mg PO DAILY 05/31/20 Atorvastatin Calcium 40 mg PO QHS #30 tablet 06/02/20 Insulin Glargine [Lantus SoloStar Pen] 50 units SC DAILY pen 06/02/20 Insulin Lispro [Humalog Kwikpen] 10 unit SQ TIDCM #1 kit 06/02/20 The following prescriptions were given: Atorvastatin Calcium 40 mg PO QHS #30 tablet Transmission Status: Pending to [id number] Insulin Lispro [Humalog Kwikpen] 10 unit SQ TIDCM #1 kit Transmission Status: Pending to [facility]/pharmacy #[id number] Primary Care Physician: Beka Williamson DO [Primary Care Provider] - Please follow up with your Primary Care Physician in: 1 Week Test Results: Test results from this visit will be discussed in further detail at your follow-up appointment, if applicable. Please Follow Up With: Kenneth Ledesma MD - Endocrinology When: Call for appt Proposed Discharge Date: 06/02/20
--- NOTE | 2020-06-02 12:51 | STRESSREP_ITS ---
Stress Test Report Pharmacologic myocardial perfusion stress test. 44-year-old man with a history of chest pain. Stress protocol: Resting EKG demonstrates normal sinus rhythm with a rate of 98 bpm normal intervals are noted resting blood pressure is 140/102 mmHg. 0.4 mg of regadenoson was infused per usual protocol followed by rapid intravenous saline flush injection continuous environmental monitoring specialist was performed. The maximum heart rate attained was 110 bpm which was 62% of max impacted heart rate the maximum workload was 1 metabolic equivalent. At rest there were no ST or T wave changes noted to suggest abnormal flow reserve and at peak infusion nonspecific ST changes were noted which did not meet the criteria for ischemia. The final blood pressure was 148/98 mmHg. Myocardial perfusion protocol. 15.0 mCi of technetium 99m sestamibi was injected at rest. 0.4 mg of regadenoson was infused per usual protocol. At peak infusion 44.0 mCi of technetium 99m sestamibi was injected stress images were obtained stress and rest images were reconstructed and compared in the short axis vertical long horizontal long axis. Gated images were also obtained per Perfusion SPECT analysis: Review of the stress images demonstrate normal uptake of tracer noted in all areas of the myocardium the resting images similar demonstrate normal uptake of tracer noted in all areas of the myocardium. No areas of reversibility are noted to suggest ischemia and no previous infarct is noted. Gated SPECT analysis: The gated ejection fraction is 55%. Conclusion: Normal pharmacologic myocardial perfusion stress test. Preserved ejection fraction.
--- NOTE | 2020-06-02 13:08 | DS.PCM_ITS ---
<Jessica Miller HOUSEKEEPER AND LAUNDRY ASSISTANT - Last Filed: 06/02/20 13:13> Discharge Date and Diagnosis Date of Admission: 05/31/20 Date of Discharge: 06/02/20 - Primary Discharge Diagnosis Acute Problems: 1. Chest pain- ACS ruled out. 2. Acute kidney injury-resolved. 3. Type 2 diabetes mellitus 4. Hypertension 5. Hypothyroidism 6. Anxiety/depression 7. ERI 8. Chronic back pain 9. Chronic COPD 10. Obesity 11. Former tobacco use 12. Former alcohol use 13. Hyperlipidemia - Secondary Discharge Diagnosis Chronic Problems: Chronic Problems HTN (hypertension) (Chronic) Hypothyroidism (Chronic) Type 2 diabetes mellitus (Chronic) ERI on CPAP (Chronic) Obesity (Chronic) COPD (chronic obstructive pulmonary disease) (Chronic) Hospital Course and Treatment Imaging Results: Diagnostic Data Brain CT 05/31/20 08:28 IMPRESSION: No acute intracranial abnormalities Electronically Signed: Ángel Garcia MD at 9:19 EDT , Service support , Chest X-Ray 05/31/20 08:28 IMPRESSION: Normal x-ray examination of the chest. Electronically Signed: Ángel Garcia MD at 9:19 EDT , Service support , Operations: None Procedures: Stress test Summary of Care Provided: The patient is a 44 year old M admitted 05/31/2020 due to chest pain. 1. Chest pain-ACS ruled out. Troponin negative. EKG without acute changes. Patient underwent nuclear stress test which was negative for ischemia. Gated ejection fraction 55%. Follow-up with PCP in 1 week. 2. Acute kidney injury-resolved with IV fluids. 3. Type 2 diabetes mellitus-poorly controlled. Hemoglobin A1c 11.4%. Home Lantus increased to 50 units daily. Initiated on Humalog 10 units 3 times daily. Continue home oral regimen. Referral to endocrinology. 4. Hypertension-appears stable, continue lisinopril/HCTZ regimen. 5. Hypothyroidism-continue Synthroid regimen. 6. Anxiety/depression-on bupropion, sertraline. 7. ERI-on CPAP. 8. Chronic back pain-on Voltaren, gabapentin, tizanidine. 9. Chronic COPD-as needed albuterol aerosol. 10. Obesity-encouraged diet lifestyle modifications. 11. Former tobacco use- Encouraged continued cessation. 12. 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 13. Hyperlipidemia-initiated on statin. Recommend repeat lipid profile in 6 weeks by PCP. General: Alert, Oriented x3, Cooperative HEENT: Atraumatic, PERRLA, EOMI, Normocephalic Neck: Supple, No JVD, Negative Carotid Bruits Lungs: Clear to auscultation, Normal air movement Cardiovascular: Regular rate, No murmurs Abdomen: Bowel Sounds Present, Soft, Non Tender, Non-Distended, Obese Extremities: No clubbing, No cyanosis, No edema, Capillary Refill Less than 3 Seconds Skin: No rashes, No breakdown Musculoskeletal: No Tenderness to Palpation of Joints or Extremities Neurological: Cranial nerves II-XII grossly intact, Neuro grossly intact Psych/Mental Status: Normal Affect, Appropriate Patient seen and examined prior to discharge. Physical assessment as noted above. Patient is stable for discharge with follow up recommendations as noted above. This patient was seen by ANI Goss under the supervision of Dr. Mendez. - Physical Exam Vitals/I&O's: Vital Signs Temp Pulse Resp BP Pulse Ox 98.0 F 80 18 131/73 H 96 06/02/20 11:25 06/02/20 11:25 06/02/20 11:25 06/02/20 11:25 06/02/20 11:25 Oxygen Delivery Method Room Air Weight: 368 lb 6.279 oz Body Mass Index (BMI) 51.3 Finger Stick Blood Glucose 447 Intake and Output for Last 24 Hours 05/31/20 06/01/20 06/02/20 23:59 23:59 23:59 Intake Total 2605 / 2605 5022.5 / 5022.5 Balance 2605 / 2605 5022.5 / 5022.5 Laboratory Results 06/01/20 16:44: POC Glucose 289 H 06/01/20 20:44: POC Glucose 268 H 06/02/20 06:05: WBC 5.9, RBC 4.99, Hgb 14.3, Hct 44.0, MCV 88.2, MCH 28.7, MCHC 32.5, RDW Std Deviation 42.5, RDW Coeff of Westley 13.2, Plt Count 204, MPV 9.2 06/02/20 06:05: Sodium 135 L, Potassium 4.5, Chloride 105, Carbon Dioxide 25.0, Anion Gap 5, BUN 17, Creatinine 1.12, Estim Creat Clear Calc 88.71, Est GFR (MDRD) Af Amer 91, Est GFR (MDRD) Non-Af 75, BUN/Creatinine Ratio 15.2, Glucose 246 H, Calcium 8.5 06/02/20 07:35: POC Glucose 237 H 06/02/20 11:28: POC Glucose 243 H Current Medications Acetaminophen (Acetaminophen 325 Mg Tablet) 650 mg PO Q6H PRN PRN PRN Reason: Pain Score 1-10/Temp > 100.7 F Last Admin: 06/01/20 20:46 Dose: 650 mg Documented by: Albuterol Sulfate (Albuterol 2.5 Mg/3 Ml Vial.Neb.) 2.5 mg INHALATION Q6HWA.RT [facility] Last Admin: 06/02/20 07:09 Dose: 2.5 mg Documented by: Atorvastatin Calcium (Atorvastatin Calcium 20 Mg Tablet) 20 mg PO QHS [facility] Last Admin: 06/01/20 20:47 Dose: 20 mg Documented by: Budesonide (Budesonide Respules 0.5 Mg/2 Ml Ampul.Neb.) 0.5 mg INHALATION Q12H.RT [facility] Last Admin: 06/02/20 07:09 Dose: 0.5 mg Documented by: Bupropion HCl (Bupropion (Xl) 300 Mg Tablet.Xl) 300 mg PO DAILY [facility] Last Admin: 06/02/20 11:29 Dose: 300 mg Documented by: Buspirone HCl (Buspirone 15 Mg Tablet) 7.5 mg PO TID PRN PRN Reason: ANXIETY Last Admin: 06/01/20 09:11 Dose: 7.5 mg Documented by: Gabapentin (Gabapentin 300 Mg Capsule) 600 mg PO TIDCM [facility] Last Admin: 06/02/20 11:42 Dose: Not Given Documented by: Sodium Chloride () 1,000 mls @ 150 mls/hr IV .Q6H40M [facility] Last Admin: 06/02/20 11:30 Dose: 150 mls/hr Documented by: Sodium Chloride () 500 mls @ 15 mls/hr IV PRN PRN PRN Reason: Blood Transfusion Sodium Chloride () 250 mls @ 15 mls/hr IV .[id number] PRN PRN Reason: Saline Flush Sodium Chloride () 250 mls @ 15 mls/hr IV .[id number] PRN PRN Reason: Additional IVPB Infusion Insulin Glargine (Insulin Glargine 100 Units/Ml Pen) 50 units SC DAILY [facility] Last Admin: 06/02/20 11:29 Dose: 50 units Documented by: Insulin Human Lispro (Insulin Lispro 100 Unit/Ml Insuln.Pen) 0 unit SC [facility]; Protocol Last Admin: 06/02/20 11:30 Dose: 4 unit Documented by: Levothyroxine Sodium (Levothyroxine 100 Mcg Tablet) 100 mcg PO DAILY@0600 [facility] Last Admin: 06/02/20 05:54 Dose: 100 mcg Documented by: Lisinopril (Lisinopril 20 Mg Tablet) 20 mg PO DAILY [facility] Last Admin: 06/02/20 05:54 Dose: 20 mg Documented by: Ondansetron HCl (Ondansetron 4 Mg/2 Ml Vial) 4 mg IV Q8H PRN PRN PRN Reason: NAUSEA/VOMITING Sertraline HCl (Sertraline 50 Mg Tablet) 50 mg PO DAILY [facility] Last Admin: 06/02/20 11:30 Dose: 50 mg Documented by: Sodium Chloride (0.9% Saline Lock 10 Ml Syringe) 10 - 40 ml IV UD PRN PRN Reason: SALINE FLUSH Last Admin: 05/31/20 13:20 Dose: 10 ml Documented by: Tizanidine HCl (Tizanidine Hcl 2 Mg Tablet) 4 mg PO Q8H PRN PRN PRN Reason: MUSCLE SPASM Last Admin: 06/01/20 20:46 Dose: 4 mg Documented by: Discharge Diet: Low fat/ Low Cholesterol, Carb Control Diet Discharge Activity: Return to Normal Activity Call your doctor if you observe: Shortness of breath, Dizziness, Fainting spells, Chest pain Home Medications: Medications to take at Discharge Albuterol Inhaler [Ventolin Hfa] 1 - 2 puff INHALATION Q4H PRN PRN 04/21/18 Fluticasone/Salmeterol [Advair 250-50 Diskus] 2 puff INHALATION BID 04/21/18 Levothyroxine Sodium 100 mcg PO DAILY 04/21/18 Lisinopril/Hydrochlorothiazide [Lisinopril-Hctz 20-12.5 mg Tab] 1 each PO DAILY 04/21/18 Metformin HCl 1,000 mg PO BID 04/21/18 Sertraline HCl 100 mg PO DAILY 04/21/18 buPROPion XL [Wellbutrin Xl] 300 mg PO DAILY 04/21/18 Diclofenac [Voltaren] 75 mg PO TID 08/10/18 Gabapentin [Neurontin] 600 mg PO TID 08/10/18 Meclizine HCl 12.5 mg PO BID PRN 05/31/20 Multivitamin 1 tablet PO DAILY 05/31/20 Tizanidine HCl 4 mg PO Q6H 05/31/20 busPIRone [Buspar] 7.5 mg PO TID PRN 05/31/20 proMETHazine tablet [Phenergan tablet] 12.5 mg PO DAILY 05/31/20 Atorvastatin Calcium 40 mg PO QHS #30 tablet 06/02/20 Insulin Glargine [Lantus SoloStar Pen] 50 units SC DAILY pen 06/02/20 Insulin Lispro [Humalog Kwikpen] 10 unit SQ TIDCM #1 kit 06/02/20 Following Prescriptions Were Given to Patient: Atorvastatin Calcium 40 mg PO QHS #30 tablet Transmission Status: Received by [facility]/pharmacy #[id number] Insulin Lispro [Humalog Kwikpen] 10 unit SQ TIDCM #1 kit Transmission Status: Received by [facility]/pharmacy #[id number] Primary Care Physician: Beka Williamson DO [Primary Care Provider] - Please follow up with your Primary Care Physician in: 1 Week Please Follow Up With: Kenneth Ledesma MD - Endocrinology When: Call for appt Disposition: Home Minutes spent on discharge:: 35 Patient Condition:: Stable Medical Necessity - Tobacco Use Smoking Status: Former smoker Meaningful Use Info Meaningful Use Diagnoses (Choose all that apply): None applicable <Ligia Mendez - Last Filed: 06/02/20 13:32> Discharge Date and Diagnosis - Secondary Discharge Diagnosis Chronic Problems: Chronic Problems HTN (hypertension) (Chronic) Hypothyroidism (Chronic) Type 2 diabetes mellitus (Chronic) ERI on CPAP (Chronic) Obesity (Chronic) COPD (chronic obstructive pulmonary disease) (Chronic) Hospital Course and Treatment Imaging Results: 06/02/20 08:00 Nuclear Stress Test - Chemical [NM] Routine Summary of Care Provided: Mr. Chew is a 44 year old WM past medical history of uncontrolled DM-2, hy pertension, hypothyroidism, hyperlipidemia, ERI, chronic low back pain, COPD, history of alcoholism, anxiety, depression, and morbid obesity who presented to the emergency department [facility] on 05/31/2020. At the time of admission he was complaining of chest pain that has been ongoing for 4 to 5 days prior to admission and had involved his left arm and clavicle area. The pain was burning in nature and was continuous. At that time he denied any worsening symptoms with exertion or any aggravating or relieving factors. He indicated that he was chronically short of breath secondary to being out of shape. The night prior to admission he reported that he developed sudden onset diaphoresis and weakness along with his shortness of breath and he felt like he was going to pass out. He reported that at that time he was dripping in sweat. Vital signs on admission were stable. His CBC was normal. His D-dimer was negative. But he had mild NEIL with a serum creatinine of 1.7 and a sodium of 133 on admission. His blood glucose level at that time was 373. His hemoglobin A1c was assessed and was 11.4. He had marked hypertriglyceridemia with a triglyceride level of 462. This should improve with improved glycemic control. His total cholesterol was 226. His cardiac enzymes were cycled and were negative. He was started on atorvastatin 20 mg at discharge and to is to continue this with follow-up lipids in 6 weeks. His LFTs were at baseline within normal limits. A stress test was done and showed an EF of 55% with normal pharmacologic myocardial perfusion stress test and a preserved ejection fraction. The patient was asymptomatic since the time of admission. His NEIL had resolved by the time of discharge and his serum creatinine was 1.12. We uptitrated his Lantus to 50 units and started Humalog with meals 10 units 3 times daily. He is to continue his Metformin and we have given him a referral to follow-up with Dr. Ledesma from endocrinology. We discussed the importance of improved glycemic control to prevent comorbidities related to diabetes including coronary disease, blindness, and renal failure. Patient voiced understanding and reported he had seen an prepress technician at diagnosis but had not seen one since. He was discharged home in stable condition on 06/02/2020 and is to follow-up with his PCP in 1 week and to call and make an prepress technician appointment. Discharge diagnoses Acute chest pain-noncardiac(resolved) Hyperlipidemia Hypertension Uncontrolled DM-2 Morbid obesity ERI COPD Chronic low back pain Anxiety Depression History of alcoholism Discharge time greater than 35 minutes Subjective: She reports that he is feeling well and is in no symptoms of chest pain since his admission. - Physical Exam Vitals/I&O's: Vital Signs Temp Pulse Resp BP Pulse Ox 98.0 F 80 18 131/73 H 96 06/02/20 11:25 06/02/20 11:25 06/02/20 11:25 06/02/20 11:25 06/02/20 11:25 Oxygen Delivery Method Room Air Weight: 167.1 kg Body Mass Index (BMI) 51.3 Finger Stick Blood Glucose 447 Intake and Output for Last 24 Hours 05/31/20 06/01/20 06/02/20 23:59 23:59 23:59 Intake Total 2605 / 2605 5022.5 / 5022.5 / Balance 2605 / 2605 5022.5 / 5022.5 General: Alert, Oriented x3, Cooperative, No apparent distress, Well developed, Well nourished, - - Morbidly obese middle-aged white male, sitting up in bed, appears comfortable HEENT: Atraumatic, PERRLA, EOMI, Normocephalic, EAC Clear Oral: Moist Mucosa, No Gingival or Mucosal Lesions/ Ulcerations Neck: Supple, No JVD, Negative Carotid Bruits, Trachea Midline, Thyroid Normal Size and Texture Lungs: Clear to auscultation, Normal air movement, No rhonchi, No wheeze, No rales, - - Distant secondary to body habitus Cardiovascular: Regular rate, Regular Rhythm, Normal S1, Normal S2, No murmurs, No Ectopic Activity, No rub noted, No Gallop, - - Distant secondary to body habitus Abdomen: Bowel Sounds Present, Soft, Non Tender, Non-Distended, Obese Extremities: No clubbing, No cyanosis, No edema, Capillary Refill Less than 3 Seconds, Peripheral Pulses Normal Skin: No rashes, No breakdown Musculoskeletal: No Tenderness to Palpation of Joints or Extremities, No Muscle Wasting Lymphatic: No Cervical, Supraclavicular, or Inguinal Adenopathy Neurological: Cranial nerves II-XII grossly intact, Neuro grossly intact, Muscle tone normal, Coordination normal Psych/Mental Status: Normal Affect, Appropriate Laboratory Results 06/01/20 16:44: POC Glucose 289 H 06/01/20 20:44: POC Glucose 268 H 06/02/20 06:05: WBC 5.9, RBC 4.99, Hgb 14.3, Hct 44.0, MCV 88.2, MCH 28.7, MCHC 32.5, RDW Std Deviation 42.5, RDW Coeff of [place]ley 13.2, Plt Count 204, MPV 9.2 06/02/20 06:05: Sodium 135 L, Potassium 4.5, Chloride 105, Carbon Dioxide 25.0, Anion Gap 5, BUN 17, Creatinine 1.12, Estim Creat Clear Calc 88.71, Est GFR (MDRD) Af Amer 91, Est GFR (MDRD) Non-Af 75, BUN/Creatinine Ratio 15.2, Glucose 246 H, Calcium 8.5 06/02/20 07:35: POC Glucose 237 H 06/02/20 11:28: POC Glucose 243 H Current Medications Acetaminophen (Acetaminophen 325 Mg Tablet) 650 mg PO Q6H PRN PRN PRN Reason: Pain Score 1-10/Temp > 100.7 F Last Admin: 06/01/20 20:46 Dose: 650 mg Documented by: Albuterol Sulfate (Albuterol 2.5 Mg/3 Ml Vial.Neb.) 2.5 mg INHALATION Q6HWA.RT [facility] Last Admin: 06/02/20 07:09 Dose: 2.5 mg Documented by: Atorvastatin Calcium (Atorvastatin Calcium 20 Mg Tablet) 20 mg PO QHS [facility] Last Admin: 06/01/20 20:47 Dose: 20 mg Documented by: Budesonide (Budesonide Respules 0.5 Mg/2 Ml Ampul.Neb.) 0.5 mg INHALATION Q12H.RT [facility] Last Admin: 06/02/20 07:09 Dose: 0.5 mg Documented by: Bupropion HCl (Bupropion (Xl) 300 Mg Tablet.Xl) 300 mg PO DAILY [facility] Last Admin: 06/02/20 11:29 Dose: 300 mg Documented by: Buspirone HCl (Buspirone 15 Mg Tablet) 7.5 mg PO TID PRN PRN Reason: ANXIETY Last Admin: 06/01/20 09:11 Dose: 7.5 mg Documented by: Gabapentin (Gabapentin 300 Mg Capsule) 600 mg PO TIDCM [facility] Last Admin: 06/02/20 11:42 Dose: Not Given Documented by: Sodium Chloride () 1,000 mls @ 150 mls/hr IV .Q6H40M [facility] Last Admin: 06/02/20 11:30 Dose: 150 mls/hr Documented by: Sodium Chloride () 500 mls @ 15 mls/hr IV PRN PRN PRN Reason: Blood Transfusion Sodium Chloride () 250 mls @ 15 mls/hr IV .[id number] PRN PRN Reason: Saline Flush Sodium Chloride () 250 mls @ 15 mls/hr IV .[id number] PRN PRN Reason: Additional IVPB Infusion Insulin Glargine (Insulin Glargine 100 Units/Ml Pen) 50 units SC DAILY [facility] Last Admin: 06/02/20 11:29 Dose: 50 units Documented by: Insulin Human Lispro (Insulin Lispro 100 Unit/Ml Insuln.Pen) 0 unit SC [facility]; Protocol Last Admin: 06/02/20 11:30 Dose: 4 unit Documented by: Levothyroxine Sodium (Levothyroxine 100 Mcg Tablet) 100 mcg PO DAILY@0600 [facility] Last Admin: 06/02/20 05:54 Dose: 100 mcg Documented by: Lisinopril (Lisinopril 20 Mg Tablet) 20 mg PO DAILY [facility] Last Admin: 06/02/20 05:54 Dose: 20 mg Documented by: Ondansetron HCl (Ondansetron 4 Mg/2 Ml Vial) 4 mg IV Q8H PRN PRN PRN Reason: NAUSEA/VOMITING Sertraline HCl (Sertraline 50 Mg Tablet) 50 mg PO DAILY [facility] Last Admin: 06/02/20 11:30 Dose: 50 mg Documented by: Sodium Chloride (0.9% Saline Lock 10 Ml Syringe) 10 - 40 ml IV UD PRN PRN Reason: SALINE FLUSH Last Admin: 05/31/20 13:20 Dose: 10 ml Documented by: Tizanidine HCl (Tizanidine Hcl 2 Mg Tablet) 4 mg PO Q8H PRN PRN PRN Reason: MUSCLE SPASM Last Admin: 06/01/20 20:46 Dose: 4 mg Documented by: Inpatient E&M: [id number] Disch Hosp
== END 2020-06-02 11:51 | disposition home or self-care (01) ==
LOC: ED 11:44 → PCU 11:52
PROVIDERS: Nurse Practitioner Family; Admitting Provider Internal Medicine; Emergency Provider Student in an Organized Health Care Education/Training Program; PCP Student in an Organized Health Care Education/Training Program; Visit Provider Internal Medicine
DX: R07.89 Other chest pain (principal); E11.65 Type 2 diabetes mellitus with hyperglycemia; E03.9 Hypothyroidism, unspecified; I10 Essential (primary) hypertension; E66.01 Morbid (severe) obesity due to excess calories; N17.9 Acute kidney failure, unspecified; G47.33 Obstructive sleep apnea (adult) (pediatric); J44.9 Chronic obstructive pulmonary disease, unspecified; F41.9 Anxiety disorder, unspecified; F32.9 Major depressive disorder, single episode, unspecified; G89.29 Other chronic pain; E78.5 Hyperlipidemia, unspecified; Z87.891 Personal history of nicotine dependence; Z79.899 Other long term (current) drug therapy; Z79.4 Long term (current) use of insulin; Z79.51 Long term (current) use of inhaled steroids; Z68.43 Body mass index [BMI] 50.0-59.9, adult
CPT/HCPCS: 36415; 70450; 71045; 78452; 80048; 80061; 81001; 82009; 82962; 83036; 83735; 84484; 85025; 85027; 85379; 93005; 93017; 94640; 96360; 96361; 99218; 99285; A9500; J7030; A4216; G0378; J2785

== ENCOUNTER → 2020-11-19 | Outpatient (CLI) | payer OTHER, SELFPAY | END | disposition home or self-care (01) | LOC: LABSPEC 15:55 | PROVIDERS: Visit Provider Otolaryngology Otolaryngology/Facial Plastic Surgery | DX: J02.9 Acute pharyngitis, unspecified (principal) | CPT/HCPCS: 87070 ==